=== PATIENT | male | born 1935 | race Caucasian/White ===

== ENCOUNTER 2018-09-12 17:13 | Emergency (ER) | payer MEDICARE ==
[~2018-09-12] VITALS: Ht 175.3 cm; Wt 65.0 kg
--- NOTE | 2018-09-12 17:22 | NUR ---
PT TO TRIAGE, STATES HIS YEAR IS 1936, THAT HIS DRIVERS LICENSE IS 1935 THAT HIS INSURANCE WONT PAY THE BILL UNLESS WE CHANGE THE DATE. PT SENT BACK TO REGISTRATION
[2018-09-12 17:33] VITALS: BP 153/84
[2018-09-12] MEDS ORDERED: HYDROcodone/acetaminophen 5mg/325mg tablet PO ONE (18:05)
[2018-09-12] MEDS ORDERED: CEPH500C5 PO (18:05)
[2018-09-12] MEDS ORDERED: SULF1TAB49 PO (18:05)
== END 2018-09-12 18:26 | disposition home or self-care (01) ==
LOC: ER 17:13
DX: L03.011 Cellulitis of right finger (principal); E78.00 Pure hypercholesterolemia, unspecified; I10 Essential (primary) hypertension; Z79.899 Other long term (current) drug therapy
CPT/HCPCS: 99283

== ENCOUNTER 2018-09-14 09:29 | Emergency (ER) | payer MEDICARE ==
[~2018-09-14] VITALS: Ht 175.3 cm; Wt 68.0 kg
[~2018-09-14 09:29] MED LIST: CEPH500C5 PO; SULF1TAB49 PO
[2018-09-14 09:46] VITALS: BP 130/64
== END 2018-09-14 10:40 | disposition home or self-care (01) ==
LOC: ER 09:31
DX: L03.011 Cellulitis of right finger (principal); I10 Essential (primary) hypertension; E78.00 Pure hypercholesterolemia, unspecified; Z89.021 Acquired absence of right finger(s)
CPT/HCPCS: 73140; 99281; 99283